=== PATIENT | female | born 1995 | race Caucasian/White ===

== ENCOUNTER 2021-11-09 00:54 | Emergency (ER) | payer OTHER, SELFPAY ==
[2021-11-09 00:56] VITALS: BP 121/82; PULSE 85; RESP 18; TEMP 36.7; O2SAT 99; BMI 32.5
[2021-11-09 01:09] VITALS: BP 121/82; PULSE 77; O2SAT 100
[2021-11-09 01:10] VITALS: BMI 32.5
[2021-11-09 01:16] LABS: Microscopic, Urine URINE MICROSCOPIC (MICROSCOPIC)
--- NOTE | 2021-11-09 01:16 | XR_ITS ---
PROCEDURE INFORMATION: Exam: XR Chest Exam date and time: 11/09/2021 1:19 AM Age: 26 years old Clinical indication: Other: Bilateral leg swelling TECHNIQUE: Imaging protocol: XR of the chest. Views: 2 views. COMPARISON: No relevant prior studies available. FINDINGS: Lungs: Slight atelectasis or scarring in the left lung base. Pleural spaces: Unremarkable. No pleural effusion. No pneumothorax. Heart/Mediastinum: Unremarkable. No cardiomegaly. Bones/joints: Rotoscoliosis. IMPRESSION: Slight atelectasis or scarring in the left lung base.
[2021-11-09 01:17] LABS: Appearance,Urine CLEAR (Clear); Bilirubin,Urine Negative (Negative); Blood, Urine 2+ (Negative); Color,Urine YELLOW (Yellow); Glucose,Urine (UA) Negative (Negative); Ketones,Urine TRACE (Negative); Leukocyte Esterase,Urine Negative (Negative); Nitrate,Urine Negative (Negative); Protein,Urine Negative (Negative); Specific Gravity, Urine >= 1.030 (1.005-1.030); Urobilinogen,Urine 0.2 EU/dl (0.2)
[2021-11-09 01:19] LABS: Urine Pregnancy, HCG Qual. Negative (Negative)
[2021-11-09 01:20] LABS: RBC,Urine Occasional #/hpf (0-3)
[2021-11-09 01:24] LABS: Basophils # 0.3 K/mm3 (0-0.2); Basophils % 1.9 % (0.1-2.0); Eosinophils # 0.7 K/mm3 (0.0-0.4); Eosinophils % 4.8 % (0.1-12.0); Hematocrit 42.3 % (37.0-47.0); Lymphocytes % 29.8 % (10-50); Mean Platelet Volume 10.1 fl (7.4-10.4); Monocytes # 0.6 K/mm3 (0.1-1.0); Monocytes % 4.3 % (1.7-9.3); Neutrophils # 7.9 K/mm3 (1.8-7.8); Neutrophils % 59.1 % (37.0-80.0); Platelet Count 190 K/mm3 (142-424); Red Cell Distribution Width 13.7 % (11.5-17.5); White Blood Count 13.4 K/mm3 (4.8-10.8)
[2021-11-09 01:33] LABS: Alanine Aminotransferase 18 U/L (12-78); Albumin Level 3.3 g/dl (3.5-5.0); Albumin/Globulin Ratio 1.7 (1.1-1.8); Alkaline Phosphatase 42 U/L (38-126); Anion Gap 5.6 mEq/L (5-15); Aspartate Amino Transferase 25 U/L (14-36); Bilirubin,Total 0.2 mg/dl (0.2-1.3); Blood Urea Nitrogen 12 mg/dl (7-17); Calcium 8.4 mg/dl (8.4-10.2); Carbon Dioxide 31 mmol/L (22.0-30.0); Chloride 107 mmol/L (98-107); Creatinine Clearance Estimated 146 mL/min (50-200); Estimated Glomerular Filt Rate 87 ml/min (>60); GFR (African American) 106 ML/MIN (>60); Glucose 75 mg/dl (74-100); Potassium 3.6 mmoL/L (3.5-5.1); Sodium 140 mmol/L (136-145); Total Protein,Serum 5.3 g/dl (6.3-8.2)
[2021-11-09 01:38] LABS: C-Reactive Protein 2.1 mg/L (0-4)
[2021-11-09 01:44] LABS: NT Pro Brain Natriuretic Pep. 298 pg/mL (0-125)
[2021-11-09 01:52] LABS: Procalcitonin 0.052 ng/mL (0.0-2.0)
[2021-11-09 02:31] LABS: D-Dimer 0.57 ug/mL (0.0-0.5)
[2021-11-09 02:44] LABS: Free T4 (Free Thyroxine) 0.97 ng/dl (0.78-2.19)
[2021-11-09 02:58] LABS: Erythrocyte Sedimentation Rate 6 mm/hr (0-20); Thyroid Stimulating Hormone 3.18 uIU/mL (0.465-4.68)
--- NOTE | 2021-11-09 03:00 | [facility].EDEXTP ---
ED Disposition Clinical Impression: Lower extremity edema, Elevated d-dimer Disposition: Home, Self-Care Condition on Discharge: Good Instructions: DI for Peripheral Edema -- Bilateral Additional Instructions: low salt diet and trial of meds and see pcp Referrals: Provider,Referral, [Primary Care Provider] - - Critical Care Critical Care Time: No Attestation: On 11/09/21, the high probability of a clinically significant, sudden or life threatening deterioration of the following system(s) required my full and direct attention, intervention and personal management. The time I documented below is in addition to time spent performing reported procedures but includes the following listed in this critical care notation. Medical Decision Making - Medical Records Medical records reviewed: Yes: I reviewed the patient's medical records. - [place] Inquiry Pt receiving controlled substance: No Vital Signs: 11/09/21 00:56 11/09/21 01:09 Temperature 98.1 F Temperature Source Oral Pulse Rate 77 Pulse Rate [Right] 85 Respiratory Rate 18 Blood Pressure 121/82 Blood Pressure [Right Arm] 121/82 Blood Pressure Mean [Right Arm] 95 02 Sat by Pulse Oximetry 99 100 Oxygen Delivery Method Room Air - Lab Data Lab results reviewed: Yes: I reviewed the patient's lab results. Lab Results 11/09/21 01:09: Urine Color Yellow, Urine Appearance Clear, Urine pH 6.0, Ur Specific [place] >= 1.030, Urine Protein Negative, Urine Glucose (UA) Negative, Urine Ketones Trace, Urine Blood 2+, Urine Nitrate Negative, Urine Bilirubin Negative, Urine Urobilinogen 0.2, Ur Leukocyte Esterase Negative, Urine RBC Occasional, Ur Squamous Epith Cells 10-20 11/09/21 01:09: Urine HCG, Qual Negative 11/09/21 01:14: WBC 13.4 H, RBC 4.50, Hgb 14.0, Hct 42.3, MCV 94.0, MCH 31.0, MCHC 33.0, RDW 13.7, Plt Count 190, MPV 10.1, Neut % (Auto) 59.1, Lymph % (Auto) 29.8, [place] % (Auto) 4.3, Eos % (Auto) 4.8, Baso % (Auto) 1.9, Neut # (Auto) 7.9 H, Lymph # (Auto) 4.0, [place] # (Auto) 0.6, Eos # (Auto) 0.7 H, Baso # (Auto) 0.3 H, ESR 6 11/09/21 01:14: Sodium 140, Potassium 3.6, Chloride 107, Carbon Dioxide 31 H, Anion Gap 5.6, BUN 12, Creatinine 0.80, Estimated Creat Clear 146, Estimated GFR 87, Est GFR ( Amer) 106, Glucose 75, Calcium 8.4, Total Bilirubin 0.2, AST 25, ALT 18, Alkaline Phosphatase 42, C-Reactive Protein 2.1, NT-Pro-B Natriuret Pep 298 H, Total Protein 5.3 L, Albumin 3.3 L, Globulin 2.0, Albumin/Globulin Ratio 1.7, Procalcitonin 0.052 11/09/21 01:14: Free T4 0.97 11/09/21 01:14: TSH 3.18 11/09/21 01:14: D-Dimer 0.57 H 11/09/21 01:14: PT 10.2, INR 0.90 Result diagrams: 11/09/21 01:14 11/09/21 01:14 Orders (Tests/Meds): ED MEDICATIONS Discontinued Medications Generic Name Dose Route Start Last Admin Trade Name Freq PRN Reason Stop Dose Admin Enoxaparin Sodium 80 mg 11/09/21 03:06 11/09/21 03:09 Enoxaparin 80mg/0.8ml Syringe SQ 11/09/21 03:07 80 mg ONCE ONE Administration Furosemide 40 mg 11/09/21 03:06 11/09/21 03:09 Furosemide 40 Mg Tablet PO 11/09/21 03:07 40 mg ONCE ONE Administration ORDERS Category Date Time Status Antiphosphatidylserine IgG/M/A Routine Lab 11/09/21 03:02 Ordered Antithrombin III, Func/Immunol Routine Lab 11/09/21 03:02 Ordered Factor V Leiden Mutation Routine Lab 11/09/21 03:02 Ordered Factor VIII Activity Routine Lab 11/09/21 03:02 Ordered Homocyst(e)ine Routine Lab 11/09/21 03:02 Ordered Protein C Antigen Routine Lab 11/09/21 03:02 Ordered Protein C Functional Routine Lab 11/09/21 03:02 Ordered Protein S Panel Routine Lab 11/09/21 03:02 Ordered - Radiology Data #1 Image(s): Chest Image Reviewed: Yes I have reviewed radiologist's interpretation Preliminary Findings: Normal/NAD Medical Decision Narrative: has lower bilat edema with stable exam but sl inc d dimer - will check for dvt and start treatment and follow with pcp Extremity Problem H
[2021-11-09 03:17] LABS: Prothrombin Time 10.2 seconds (10.1-12.5)
[2021-11-09 03:50] VITALS: BP 119/74; PULSE 77; RESP 18; TEMP 36.7; O2SAT 99
[2021-11-10 08:12] LABS: Homocyst(e)ine 6.6 umol/L (0.0-14.5)
[2021-11-11 14:22] LABS: Anti-Thrombin III Antigen 83 % (72-124); Antithrombin Activity 100 % (75-135); Factor VIII Activity 96 % (56-140); Protein C Functional 101 % (73-180); Protein S, Free 65 % (61-136); Protein S, Total 45 % (60-150); Protein S-Functional 71 % (63-140)
[2021-11-11 17:10] LABS: Protein C Antigen 87 % (60-150)
== END 2021-11-09 03:51 | disposition home or self-care (01) ==
PROVIDERS: Emergency Provider Emergency Medicine
DX: M79.89 Other specified soft tissue disorders (principal); R60.1 Generalized edema; R79.1 Abnormal coagulation profile
CPT/HCPCS: 71046; 80053; 81001; 81025; 81241; 83090; 83880; 84145; 84439; 84443; 85025; 85240; 85300; 85301; 85302; 85305; 85306; 85378; 85610; 85651; 86140; 86148; 96372; 99283

== ENCOUNTER → 2021-11-09 13:32 | Outpatient (CLI) | payer OTHER, SELFPAY ==
--- NOTE | 2021-11-09 | CA_ITS ---
FINAL REPORT CLINICAL HISTORY: Pt. states BLE swelling started evening and worsened on Thursday so she came to the ER. Pt states swelling has significantly gone down today. FINDINGS: Color Doppler, duplex Doppler and compression sonography of the bilateral lower extremities was performed. There is no evidence of deep venous thrombosis from the level of the groin to the calf. The deep veins are patent and compressible. IMPRESSION: No evidence of deep venous thrombosis bilateral lower extremities. Reviewed, Interpreted and Dictated by Chucky Camacho III, MD Transcribed by Vickie Medeiros Authenticated by Chucky Camacho III, MD on 11/09/2021 03:46:07 PM [facility]
== END ==
PROVIDERS: Visit Provider Emergency Medicine
DX: M79.605 Pain in left leg (principal); M79.604 Pain in right leg; M79.89 Other specified soft tissue disorders
CPT/HCPCS: 93970